=== PATIENT | male | born 1985 | race African-American/Black ===

== ENCOUNTER 2017-05-14 14:30 | Emergency (ER) | payer OTHER ==
[~2017-05-14] VITALS: Ht 182.9 cm; Wt 75.0 kg
[2017-05-14 14:42] VITALS: Ht 182.9 cm; Wt 75.0 kg
--- NOTE | 2017-05-14 14:43 | ERA ---
ER Documentation Chief Complaint Date/Time DATE: 05/14/17 TIME: 14:43 Chief Complaint Medical clearance HPI The patient is a 31-year-old male, presenting to the ER for medical clearance for booking. He has been doing amphetamine. He denies headache, syncope, near syncope, neck pain, chest pain, abdominal pain, vomiting, dysuria, diarrhea. He smokes and drinks and does illicit drug Past medical history: Asthma Past surgical history: None ROS All systems reviewed and are negative except as per history of present illness. Allergies Allergies: Coded Allergies: No Known Allergy (Unverified , 05/14/17) Physical Exam Vitals Vital Signs Date Time Temp Pulse Resp B/P Pulse Ox O2 Delivery O2 Flow Rate FiO2 05/14/17 17:17 98.1 97 16 115/70 95 Room Air 05/14/17 14:42 98.0 128 20 159/80 98 Physical Exam Const: No acute distress. Head: Atraumatic. Eyes: Normal Conjunctiva. ENT: Normal External Ears, Nose and Mouth. Neck: Full range of motion. No meningismus. Resp: Clear to auscultation bilaterally. Cardio: Regular rate tachycardic Abd: Soft, non distended, normal bowel sounds, non tender. Skin: No petechiae or rashes. Back: No midline or flank tenderness. Ext: No cyanosis, or edema. Neur: Awake and alert. No focal deficit Psych: Anxious but not suicidal or homicidal Results 24 hrs Current Medications Medications (Trade) Dose Ordered Sig/Rehan Route PRN Reason Start Time Stop Time Status Last Admin Dose Admin Lorazepam (Ativan) 1 mg ONCE ONCE PO 05/14/17 15:00 05/14/17 15:01 DC 05/14/17 15:56 Lorazepam (Ativan) 1 mg ONCE ONCE PO 05/14/17 16:30 05/14/17 16:31 DC Lorazepam (Ativan) 1 mg ONCE ONCE IM 05/14/17 17:00 05/14/17 17:01 DC 05/14/17 17:01 Procedures/MDM MEDICAL MAKING DECISION: The patient is a 31-year-old male, presenting with acute amphetamine abuse. He was treated with Ativan 1 mg p.o. and 1 mg IM with good response. His vital signs improved. He is awake, alert, stable for outpatient follow-up The differential diagnoses considered include but are not limited to drug- induced psychosis, psychosis, anxiety attack, panic attack Departure Diagnosis: Primary Impression: Amphetamine abuse Condition: Stable Comments The patient's blood pressure was elevated (>120/80) but appears stable without evidence of hypertension emergency or urgency. The patient was counseled about the risks of hypertension and urged to pursue outpatient monitoring and therapy within a week with their primary care physician. I discussed the findings with the patient. I advised the patient to follow-up with the half-way MD tomorrow, sooner if needed and return if any concern. ANISHA DU MD May 14, 2017 14:43
[2017-05-14] MEDS ORDERED: LORAZEPAM 1 MG TAB PO ONE (15:00)
[2017-05-14] MEDS: LORAZEPAM 1 MG TAB PO ONE ×2 (16:26→16:35)
[2017-05-14] MEDS ORDERED: LORAZEPAM 2 MG INJ IM ONE (17:00)
[2017-05-14 17:17] VITALS: BP 115/70; PULSE 97; RESP 16; TEMP 98.1
== END 2017-05-14 17:35 ==
LOC: E/R 14:30
DX: F15.10 Other stimulant abuse, uncomplicated (principal); J45.909 Unspecified asthma, uncomplicated
CPT/HCPCS: 96372; 99284; J2060